=== PATIENT | female | born 1965 ===

== ENCOUNTER 2018-02-04 10:12 | Emergency (ER) | payer BC ==
--- NOTE | 2018-02-04 10:42 | UC ---
Complaint Female HPI - HPI Summary HPI Summary: 52 y/o female presents to the urgent care c/o burning and frequency on urination for the past week. Pt reports she has Hx of recurrent UTIs. She live in [place] and last she went to an Urgent care and Dx w/ UTI and Rx Bactrim. She was called yesterday and told the bacteria was resistant to Bactrim PO and she was switch to Macrobid PO. She took firt dose last night and this morning, but she thinks her symptoms are not improving and maybe she is also resistant to Macrobid PO since she takes it prophylactically after sex for the past 2 years. Now she is concern she may have a kidney infection since her pain when she urinates is moving up the Rt side of lower back. Pt denies fever, flank pain, abdominal pain, N/v/D, SOB, chest pain. LMP: She still have it very mild. Last day today. - History Of Current Complaint Chief Complaint: UCGU Stated Complaint: UTI Time Seen by Provider: 02/04/18 10:40 Hx Obtained From: Patient Onset/Duration: Gradual Onset, Lasting Weeks - 1 week, Still Present, Worse Since - last night Timing: Constant Severity Initially: Mild Severity Currently: Moderate Pain Intensity: 7 - w/ urination Pain Scale Used: 0-10 Numeric Character: Burning Aggravating Factor(s): Urination Associated Signs And Symptoms: Positive: Negative. Negative: Fever, Back Pain, Vaginal Discharge - Risk Factors Ectopic Risk Factor: Negative - Allergies/Home Medications Allergies/Adverse Reactions: Allergies Allergy/AdvReac Type Severity Reaction Status Date / Time Penicillins Allergy Rash Verified 02/04/18 10:27 Home Medications: Home Medications Escitalopram (NF) [Lexapro 5 mg (NF)] 5 mg PO DAILY 02/04/18 [History Confirmed 02/04/18] Nitrofurantoin Monohyd/M-Cryst [Macrobid 100 mg Capsule] 100 mg 02/04/18 [ History] Valacyclovir HCl [Valacyclovir] 1 gm PO 02/04/18 [History] PMH/Surg Hx/FS Hx/Imm Hx Previously Healthy: Yes Other GI/ History: Recurrent UTI Psychological History: Anxiety - Surgical History Surgical History: Yes Surgery Procedure, Year, and Place: d&c X2, ablasion, dental implant - Family History Known Family History: Positive: Cardiac Disease Family History: lymphoma - Social History Occupation: Employed Full-time Lives: With Family Alcohol Use: Occasionally Substance Use Type: None Smoking Status (MU): Never Smoked Tobacco Review of Systems Constitutional: Negative Skin: Negative Eyes: Negative ENT: Negative Respiratory: Negative Cardiovascular: Negative Gastrointestinal: Negative Genitourinary: Dysuria, Frequency, Urgency Motor: Negative Neurovascular: Negative Musculoskeletal: Negative Neurological: Negative Psychological: Negative Is Patient Immunocompromised?: No All Other Systems Reviewed And Are Negative: Yes Physical Exam - Summary Physical Exam Summary: VITAL SIGNS: Reviewed. GENERAL: Patient is a well developed and nourished female who is sitting comfortable in the examining table. Patient is not in any acute respiratory distress. HEAD AND FACE: No signs of trauma. No ecchymosis, hematomas or skull depressions. No sinus tenderness. EYES: PERRLA, EOMI x 2, No injected conjunctiva, clear watery eyes, no nystagmus. No photophobia. EARS: Hearing grossly intact. Ear canals and tympanic membranes are within normal limits. MOUTH: pharynx with no erythema, no exudates,no palatal petechiae. no B/L tonsillar enlargement Uvula in midline. NECK: Supple, trachea is midline, no lymphadenopathy, no JVD, no carotid bruit, no c-spine tenderness, neck with full ROM. CHEST: Symmetric, no tenderness at palpation LUNGS: Clear to auscultation bilaterally. No wheezing or crackles. CVS: Regular rate and rhythm, S1 and S2 present, no murmurs or gallops appreciated. ABDOMEN: Soft, non-tender. No signs of distention. No rebound no guarding, and no masses palpated. Bowel sounds are normal. BACK:no scoliosis or lesions, non tender to palpation, No B/L CVA tenderness EXTREMITIES: FROM in all major joints, no edema, no cyanosis or clubbing. NEURO: Alert and oriented x 3. No acute neurological deficits. Speech is normal and follows commands. SKIN: Dry and warm Triage Information Reviewed: Yes Vital Signs: Initial Vital Signs Temp 98.3 F 02/04/18 10:21 Pulse 64 02/04/18 10:21 Resp 18 02/04/18 10:21 BP 117/72 02/04/18 10:21 Pulse Ox 99 02/04/18 10:21 Complaint Female Dx - Course Course Of Treatment: 52 y/o female presents to the urgent care c/o burning and frequency on urination for the past week. Pt reports she has Hx of recurrent UTIs. She live in [place] and last she went to an Urgent care and Dx w/ UTI and Rx Bactrim. She was called yesterday and told the bacteria was resistant to Bactrim PO and she was switch to Macrobid PO. She took first dose last night and this morning, but she thinks her symptoms are not improving and maybe she is also resistant to Macrobid PO since she takes it prophylactically after sex for the past 2 years. Now she is concern she may have a kidney infection since her pain when she urinates is moving up the Rt side of lower back. Pt denies fever, flank pain, abdominal pain, N/v/D, SOB, chest pain. LMP: She still have it very mild. Last day today.Hx obtained. PE: WNL. UA ordered, UA results: trace. Pt was taking ABX and probably the trace of blood is her period. No CVA tenderness on examination and vital signs WNL. Urine sent for culture to r/o any abdnormality. Pt will be notified of any result Pt's symptoms discussed w/ Dr Orta in the possibility to change ABx, but we don't have records for previous urine cultures. Dr Orta recommended to Pt should continue taking Macrobid since Pt Rx Macrobid 100mg PO x 7 days. Pyridium 100mg PO for 2-3 days since it is an antiseptic and if not improvement to switch for Ciprofloxacin PO or wait for culture results. Pt educated on her symptoms and the importance to continue w/ Macrobid to allow its effect to take place. Pt also Rx Pyridium for dysuraia. Advised to increase fluid intake. Pt advised If symptoms do not improve to f/u w/ her PCP in [place] for furthe management in her re-current UTI. Pt understood and agreed w/ D/C instructions. Left the clinic ambulating. - Differential Dx/Diagnosis Differential Diagnosis/HQI/PQRI: Cervicitis, Renal Colic, Sexually Transmitted Disease, Ureteral Stone, Urinary Tract Infection Provider Diagnoses: 1- Urinary tract infection. 2-Dysuria Discharge - Sign-Out/Discharge Documenting (check all that apply): Discharge/Admit/Transfer - D/c home - Discharge Plan Condition: Stable Disposition: HOME Prescriptions: Ciprofloxacin TAB* [Cipro 500 MG TAB*] 500 mg PO DAILY #14 tab Phenazopyridine TAB* [Pyridium 100 mg TAB*] 100 mg PO TID #6 tab Patient Education Materials: Urinary Tract Infection in Women (ED), Dysuria (ED ) Referrals: [facility] [place] [facility] [Outside] - If Needed Additional Instructions: 1- Please continue taking the Macrobid 100mg PO for 2-3 days as directed by your PCP. If not improvement of symp[toms you can start taking the Ciprofloxacin PO as directed. Take Pyridium 100 mg PO TID x 2 days to alleviate urinary symptoms. Increase increase fluid intake. drink cranberry juice. 2-Urine sent for culture if any abnormality, you will be notified for further treatment. 3-Please f/u w/ your PCP in [place] If symptoms do not improve of symptoms for further or referral w/ an Urologist for further management n your recurrent UTI 4- If you develop fever, and flank pain, please go immediately to the ER for further treatment - Billing Disposition and Condition Condition: STABLE Disposition: Home
--- NOTE | 2018-02-06 07:17 | UC ---
- Progress Note Progress Note: Please note that I inadvertently signed up for this patient. Patient was initially seen when Dr. ELLIS was on. Urine culture came back negative. She had been seen at an urgent care center in [place] and was on an antibiotic. She was called and told that her urine culture showed the care was resistant to the antibiotic she was placed on. This may account for her negative urine culture here. Discharge - Sign-Out/Discharge Documenting (check all that apply): Post-Discharge Follow Up - Discharge Plan Condition: Stable Disposition: HOME Prescriptions: Ciprofloxacin TAB* [Cipro 500 MG TAB*] 500 mg PO DAILY #14 tab Phenazopyridine TAB* [Pyridium 100 mg TAB*] 100 mg PO TID #6 tab Patient Education Materials: Urinary Tract Infection in Women (ED), Dysuria (ED ) Referrals: [facility] [place] [facility] [Outside] - If Needed Additional Instructions: 1- Please continue taking the Macrobid 100mg PO for 2-3 days as directed by your PCP. If not improvement of symp[toms you can start taking the Ciprofloxacin PO as directed. Take Pyridium 100 mg PO TID x 2 days to alleviate urinary symptoms. Increase increase fluid intake. drink cranberry juice. 2-Urine sent for culture if any abnormality, you will be notified for further treatment. 3-Please f/u w/ your PCP in [place] If symptoms do not improve of symptoms for further or referral w/ an Urologist for further management n your recurrent UTI 4- If you develop fever, and flank pain, please go immediately to the ER for further treatment - Billing Disposition and Condition Condition: STABLE Disposition: Home
== END 2018-02-04 11:25 | disposition home or self-care (01) ==
LOC: UCEAST 10:12
DX: N39.0 Urinary tract infection, site not specified (principal)
CPT/HCPCS: 81003; 87086; 99202; G0463